=== PATIENT | female | born 1970 ===

== ENCOUNTER 2018-08-23 03:32 | Emergency (ER) | payer OTHER ==
--- NOTE | 2018-08-23 04:36 | C.PDOC ---
History Of Present Illness 47 year old female is brought to the ED by EMS for evaluation of itching of her anus. Patient reports she was cleaning the house and then touched her buttock area. Patient states "I think I have a bacterial infection and I want to get checked out". Patient denies fever, chills, nausea, vomit, diarrhea, injury, fall, trauma, GI bleed. Time Seen by Provider: 08/23/18 03:44 Chief Complaint (Nursing): Medical Clearance History Per: Patient, EMS History/Exam Limitations: no limitations Onset/Duration Of Symptoms: Hrs Current Symptoms Are (Timing): Still Present Recent travel outside of the [place]: No Additional History Per: Patient Past Medical History Reviewed: Historical Data, Nursing Documentation, Vital Signs Vital Signs: Last Vital Signs Temp 97.6 F 08/23/18 03:39 Pulse 101 H 08/23/18 03:39 Resp 16 08/23/18 03:39 BP 121/80 08/23/18 03:39 Pulse Ox 97 08/23/18 03:39 - Medical History PMH: No Chronic Diseases Surgical History: No Surg Hx Family History: States: Unknown Family Hx - Social History Hx Alcohol Use: No Hx Substance Use: No Review Of Systems Constitutional: Negative for: Fever, Chills Cardiovascular: Negative for: Chest Pain Respiratory: Negative for: Shortness of Breath Gastrointestinal: Positive for: Rectal Pain. Negative for: Nausea, Vomiting, Abdominal Pain Genitourinary: Negative for: Dysuria, Hematuria Skin: Positive for: Rash Neurological: Negative for: Weakness, Numbness, Headache Physical Exam - Physical Exam Appears: Non-toxic, No Acute Distress Skin: Normal Color, Warm, Dry Head: Atraumatic Eye(s): bilateral: Normal Inspection Neck: Supple Gastrointestinal/Abdominal: Soft, No Tenderness Rectal: Normal Exam, No Hemorrhoids, No Mass, No Tenderness, No Other (erythema or perianal swelling) Extremity: Normal ROM, No Tenderness, No Swelling Neurological/Psych: Oriented x3, Normal Speech, Normal Cognition Gait: Steady ED Course And Treatment O2 Sat by Pulse Oximetry: 97 (ON RA) Pulse Ox Interpretation: Normal Progress Note: On reassessment, patient is resting comfortably, and is in no acute distress , taking selfies on stretcher. Patient was instructed in good hygiene and care and to follow up with physician/clinic in 1-2 days for further evaluation. Disposition Counseled Patient/Family Regarding: Diagnosis, Need For Followup - Disposition Disposition: HOME/ ROUTINE Disposition Time: 04:36 Condition: STABLE Additional Instructions: Use Witch mya wipes May use suppositories prescribed Sitz baths Return to ER if worse Prescriptions: Hydrocortisone [Anusol-HC] 25 mg RC BID #20 sup Instructions: Anal Pruritus (Anal Itching) Forms: [employer] ([place]ayan) Print Language: PERSIAN - Clinical Impression Clinical Impression: Anal pruritus - PA / GUITAR [employer]ER / Resident Statement MD/DO has reviewed & agrees with the documentation as recorded. - Scribe Statement The provider has reviewed the documentation as recorded by the Scribe Zurdo Buckner All medical record entries made by the Scribe were at my direction and personally dictated by me. I have reviewed the chart and agree that the record accurately reflects my personal performance of the history, physical exam, medical decision making, and the department course for this patient. I have also personally directed, reviewed, and agree with the discharge instructions and disposition.
[2018-08-23 05:06] VITALS: BP 122/80; PULSE 82; RESP 20; TEMP 98
[2018-08-23 05:12] VITALS: O2SAT 97
== END 2018-08-23 05:04 | disposition home or self-care (01) ==
LOC: C.ER 03:32
DX: L29.0 Pruritus ani (principal)